=== PATIENT | female | born 1995 | race Caucasian/White ===

== ENCOUNTER 2020-06-26 17:20 | Emergency (ER) | payer OTHER ==
[~2020-06-26] VITALS: Ht 177.8 cm; Wt 140.6 kg
[2020-06-26] MEDS ORDERED: METFORMIN HCL500 M3 PO ×2 (17:42→19:38)
[2020-06-26 19:46] VITALS: BP 136/70
== END 2020-06-26 19:47 | disposition home or self-care (01) ==
LOC: M.ERS 17:20
DX: J02.0 Streptococcal pharyngitis (principal); E11.9 Type 2 diabetes mellitus without complications; Z76.0 Encounter for issue of repeat prescription; Z86.2 Personal history of diseases of the blood and blood-forming organs and certain disorders involving the immune mechanism; Z79.84 Long term (current) use of oral hypoglycemic drugs; Z88.8 Allergy status to other drugs, medicaments and biological substances

== ENCOUNTER 2020-06-30 01:01 | Emergency (ER) | payer OTHER ==
[~2020-06-30] VITALS: Ht 177.8 cm; Wt 140.6 kg
[~2020-06-30 01:01] MED LIST: METFORMIN HCL500 M3 PO
[2020-06-30 01:10] VITALS: BP 149/75
[2020-06-30] MEDS ORDERED: VIBRAMYCIN 100100 MG PO (01:32)
[2020-06-30] MEDS ORDERED: HYDROCODON-ACE1 EAC8 PO (01:33)
[2020-06-30] MEDS ORDERED: DIFLUCAN150 MG PO (01:35)
== END 2020-06-30 01:22 | disposition home or self-care (01) ==
LOC: M.ERS 01:01
DX: N61.1 Abscess of the breast and nipple (principal); E11.9 Type 2 diabetes mellitus without complications; Z86.2 Personal history of diseases of the blood and blood-forming organs and certain disorders involving the immune mechanism; Z79.899 Other long term (current) drug therapy; Z88.8 Allergy status to other drugs, medicaments and biological substances